=== PATIENT | female | born 1960 | race Caucasian/White ===

== ENCOUNTER 2023-06-15 10:21 | Outpatient (REF) | payer OTHER, SELFPAY | END 2023-06-15 10:22 | disposition home or self-care (01) | LOC: HO.SH 10:21 | PROVIDERS: Visit Provider Physician Assistant Medical | DX: Z01.118 Encounter for examination of ears and hearing with other abnormal findings (principal); H93.293 Other abnormal auditory perceptions, bilateral; H93.11 Tinnitus, right ear | CPT/HCPCS: 92557; 92567; 92700 ==